=== PATIENT | male | born 1980 | race Caucasian/White ===

== ENCOUNTER 2020-06-04 17:22 | Outpatient (CLI) | payer SELFPAY | END 2020-06-04 17:23 | disposition critical access hospital (66) | LOC: EMS 17:22 | PROVIDERS: ATTEND Surgery | DX: R56.9 Unspecified convulsions (principal) | CPT/HCPCS: A0425; A0427 ==

== ENCOUNTER 2020-06-04 17:43 | Emergency (ER) | payer SELFPAY ==
--- NOTE | 2020-06-04 17:51 | ED Physician Documentation ---
PD HPI FOCAL NEURO - Stated complaint Stated Complaint: SEIZURE - History obtained from History obtained from: Patient - Additional information Additional information: 39-year-old gentleman visiting from [place]. He has no medical problems and no history of seizures. He was at the grocery store today and reportedly had a tonic-clonic seizure. He did bite his tongue. He feels fine now, no complaints, no headache. He says he had 3 beers today, I asked him if this was less than normal or more than normal, he said it depends on the day. He does admit to heavy alcohol use. Review of Systems Ten Systems: 10 systems reviewed and negative Constitutional: reports: Reviewed and negative Throat: reports: Reviewed and negative Cardiac: reports: Reviewed and negative Respiratory: reports: Reviewed and negative PD PAST MEDICAL HISTORY - Present Medications Home Medications: Ambulatory Orders Medication Instructions Recorded Confirmed LORazepam [Ativan] 1 mg PO TID PRN #12 tablet 06/04/20 - Allergies Allergies/Adverse Reactions: Allergies Allergy/AdvReac Type Severity Reaction Status Date / Time No Known Drug Allergies Allergy Verified 06/04/20 18:05 PD ED PE NORMAL - Vitals Vital signs reviewed: Yes - General General: Alert and oriented X 3, No acute distress, Other (Slightly tremulous) - HEENT HEENT: PERRL, EOMI, Other (Abrasion on the left tip of the tongue) - Neck Neck: Supple, no meningeal sign, No bony TTP - Cardiac Cardiac: RRR, No murmur - Respiratory Respiratory: No respiratory distress, Clear bilaterally - Abdomen Abdomen: Non tender - Derm Derm: Normal color, Warm and dry - Neuro Neuro: Alert and oriented X 3, No motor deficit, No sensory deficit, Normal speech Results - Vitals Vitals: Vital Signs - 24 hr 06/04/20 06/04/20 17:54 18:51 Temperature 36.5 C Heart Rate 85 76 Respiratory 16 18 Rate Blood Pressure 124/94 H 130/92 H O2 Saturation 96 96 Oxygen O2 Source Room air - EKG (time done) 1829 Rate: Rate (enter#) (79) Rhythm: NSR [place]: Normal Intervals: Normal DE QRS: Normal Ischemia: Normal ST segments - Labs Labs: Laboratory Tests 06/04/20 06/04/20 06/04/20 17:54 18:00 18:00 WBC 6.4 RBC 4.44 L Hgb 15.3 Hct 43.6 MCV 98.2 H MCH 34.5 H MCHC 35.1 RDW 11.9 L Plt Count 82 L MPV 10.9 Neut # (Auto) 3.9 Lymph # (Auto) 1.6 Falls # (Auto) 0.7 Eos # (Auto) 0.1 Baso # (Auto) 0.0 Absolute Nucleated RBC 0.00 Nucleated RBC % 0.0 Sodium 132 L Potassium 3.1 L Chloride 91 L Carbon Dioxide 22 Anion Gap 19.0 H BUN 12 Creatinine 1.0 Estimated GFR (MDRD) 83 L Glucose 156 H POC Whole Bld Glucose 183 H Calcium 9.5 Total Bilirubin 1.3 H AST 99 H ALT 60 Alkaline Phosphatase 71 Total Protein 7.8 Albumin 4.3 Globulin 3.5 Albumin/Globulin Ratio 1.2 Urine Opiates Screen Ur Oxycodone Screen Urine Methadone Screen Ur Propoxyphene Screen Ur Barbiturates Screen Ur Tricyclics Screen Ur Phencyclidine Scrn Ur Amphetamine Screen U Methamphetamines Scrn U Benzodiazepines Scrn Urine Cocaine Screen U Cannabinoids Screen Ethyl Alcohol 5.8 06/04/20 18:45 WBC RBC Hgb Hct MCV MCH MCHC RDW Plt Count MPV Neut # (Auto) Lymph # (Auto) Falls # (Auto) Eos # (Auto) Baso # (Auto) Absolute Nucleated RBC Nucleated RBC % Sodium Potassium Chloride Carbon Dioxide Anion Gap BUN Creatinine Estimated GFR (MDRD) Glucose POC Whole Bld Glucose Calcium Total Bilirubin AST ALT Alkaline Phosphatase Total Protein Albumin Globulin Albumin/Globulin Ratio Urine Opiates Screen NEGATIVE Ur Oxycodone Screen NEGATIVE Urine Methadone Screen NEGATIVE Ur Propoxyphene Screen NEGATIVE Ur Barbiturates Screen NEGATIVE Ur Tricyclics Screen NEGATIVE Ur Phencyclidine Scrn NEGATIVE Ur Amphetamine Screen NEGATIVE U Methamphetamines Scrn NEGATIVE U Benzodiazepines Scrn NEGATIVE Urine Cocaine Screen NEGATIVE U Cannabinoids Screen POSITIVE H Ethyl Alcohol - Rads (name of study) CT Head Radiology: EMP read contemporaneously PD MEDICAL DECISION MAKING - ED course ED course: 39-year-old gentleman presents with first seizure, given his shakiness, alcohol with use. This is likely an alcohol withdrawal seizure. Discussed with him that he cannot drive. He understands the need to quit alcohol and feels ready. Departure - Departure Disposition: 01 Home, Self Care Clinical Impression: Encephalomalacia on imaging study Alcohol withdrawal seizure Qualifiers: Complication of substance-induced condition: uncomplicated Qualified Code(s): F10.230 - Alcohol dependence with withdrawal, uncomplicated Cirrhosis Qualifiers: Hepatic cirrhosis type: alcoholic cirrhosis Ascites presence: without ascites Qualified Code(s): K70.30 - Alcoholic cirrhosis of liver without ascites Condition: Good Record reviewed to determine appropriate education?: Yes Instructions: Cirrhosis Liver Dc, ED Seizure Alcohol Withdrawal Prescriptions: LORazepam [Ativan] 1 mg PO TID PRN #12 tablet PRN Reason: Anxiety Comments: Work-up today demonstrates some liver damage from your alcoholism as well as brain shrinkage from your alcoholism. It is imperative to quit drinking alcohol. Also as discussed, per [place] state law it is illegal to drive for 6 months after a seizure. Return if you worsen, recommend following up near her home for alcohol withdrawal options. Do not drink with the medications for alcohol withdrawal.
[2020-06-04 18:08] LABS: BASOPHILS % (AUTO) 0.6 %; EOSINOPHILS # (AUTO) 0.1 10^3/uL (0.0-0.7); EOSINOPHILS % (AUTO) 1.3 %; HGB - HEMOGLOBIN 15.3 g/dL (14.0-18.0); LYMPHOCYTES # (AUTO) 1.6 10^3/uL (1.5-3.5); LYMPHOCYTES % (AUTO) 25.4 %; MEAN CORPUSCULAR HEMOGLOBIN 34.5 pg (27.0-31.0); MEAN CORPUSCULAR HGB CONC 35.1 g/dL (32.0-36.0); MEAN CORPUSCULAR VOLUME 98.2 fL (80.0-94.0); MEAN PLATELET VOLUME 10.9 fL (7.4-11.4); MONOCYTES # (AUTO) 0.7 10^3/uL (0.0-1.0); MONOCYTES % (AUTO) 11.3 %; NEUTROPHILS # (AUTO) 3.9 10^3/uL (1.5-6.6); NEUTROPHILS % (AUTO) 61.1 %; PLT - PLATELET COUNT 82 10^3/uL (130-450); RED BLOOD COUNT 4.44 10^6/uL (4.70-6.10); RED CELL DISTRIBUTION WIDTH 11.9 % (12.0-15.0); WHITE BLOOD COUNT 6.4 x10^3/uL (4.8-10.8)
[2020-06-04 18:16] LABS: ALBUMIN 4.3 g/dL (3.2-5.5); ALBUMIN/GLOBULIN RATIO 1.2 (1.0-2.2); BILIRUBIN,TOTAL 1.3 mg/dL (0.2-1.0); CALCIUM 9.5 mg/dL (8.5-10.3); TOTAL PROTEIN 7.8 g/dL (6.7-8.2)
[2020-06-04 19:08] LABS: MUDS CUTOFF CONCENTRATIONS CUTOFF CONC BELOW:
--- NOTE | 2020-06-04 19:17 | CT Report ---
PROCEDURE: HEAD WO INDICATIONS: seizure TECHNIQUE: Noncontrast 4.5 mm thick angled axial sections acquired from the foramen magnum to the vertex. For r adiation dose reduction, the following was used: automated exposure control, adjustment of mA and/or kV according to patient size. COMPARISON: None. FINDINGS: Image quality: Excellent. CSF spaces: An incidental megacisterna magna is present. Basal cisterns are patent. No extra-axial f luid collections. Ventricles are normal in size and shape. Brain: There is prominence of the ventricles suggesting atrophy which is more prominent than would b e expected for a patient this age. No midline shift. No intracranial masses or hemorrhage. Bourgeois-whit e matter interfaces are normal. There is a prominent falcine calcification. Skull and face: Calvarium and visualized facial bones are intact, without suspicious lesions. Sinuses: Visualized sinuses and mastoids are clear. IMPRESSION: 1. No acute intracranial abnormality. 2. Negative cisterna magna. 3. Increased prominence of the sulci and cerebral volume loss which is out of proportion for a patien t this age. Reviewed by: Neil Jefferson on 06/04/2020 7:16 PM PST Approved by: Neil Jefferson on 06/04/2020 7:16 PM PST Station ID: [id number]
[2020-06-04] MEDS ORDERED: LORazepam 1 MG TABLET PO STA (19:23)
[2020-06-04 19:27] LABS: AMPHETAMINE SCREEN,URINE NEGATIVE (NEGATIVE); BENZODIAZEPINES SCREEN, URINE NEGATIVE (NEGATIVE); COCAINE SCREEN URINE NEGATIVE (NEGATIVE); METHADONE SCREEN, URINE NEGATIVE (NEGATIVE); METHAMPHETAMINES SCREEN, URINE NEGATIVE (NEGATIVE); OPIATE SCREEN, URINE NEGATIVE (NEGATIVE); OXYCODONE SCREEN, URINE NEGATIVE (NEGATIVE); PROPOXYPHENE SCREEN, URINE NEGATIVE (NEGATIVE); TRICYCLIC ANTIDEPRESSANT,URINE NEGATIVE (NEGATIVE)
[2020-06-04 19:39] VITALS: BP 124/99
== END 2020-06-04 19:39 | disposition home or self-care (01) ==
LOC: ED 17:43
DX: F10.230 Alcohol dependence with withdrawal, uncomplicated (principal); R56.9 Unspecified convulsions; S00.512A Abrasion of oral cavity, initial encounter; X58.XXXA Exposure to other specified factors, initial encounter; G31.2 Degeneration of nervous system due to alcohol; G93.89 Other specified disorders of brain; K70.30 Alcoholic cirrhosis of liver without ascites
CPT/HCPCS: 36415; 70450; 80053; 80306; 80320; 85025; 93005; 99284